=== PATIENT | male | born 1960 | race Caucasian/White ===

== ENCOUNTER 2020-03-12 06:56 | Day surgery (SDC) | payer OTHER ==
[~2020-03-12 06:56] MED LIST: Lactated Ringers 1,000 ML IV SCH
[2020-03-12] MEDS ORDERED: Lidocaine 2% 5 ML SDV ONE (07:05)
[2020-03-12] MEDS ORDERED: Propofol 200 MG/20 ML SDV ONE ×2 (07:06→08:02)
[2020-03-12] MEDS ORDERED: fentaNYL 100 MCG/2 ML SDV ONE (07:06)
--- NOTE | 2020-03-12 07:32 | PCM.PREANE ---
Preanesthetic Assessment - Anesthesia/Transfusion/Family Hx Anesthesia History: Prior Anesthesia Without Reaction Family History of Anesthesia Reaction: No Transfusion History: Prior Transfusion Without Reaction Intubation History: Unknown - Review of Systems General: No Symptoms Pulmonary: No Symptoms Cardiovascular: No Symptoms Gastrointestinal: No Symptoms, Other (screening, first colonoscopy) Neurological: No Symptoms Other: Reports: None - Physical Assessment Height: 5 ft 11 in Weight: 108.862 kg ASA Class: 3 Mental Status: Alert & Oriented x3 Airway Class: Mallampati = 2 Dentition: Reports: Normal Dentition, [place](s) (x1 upper left (back)) Thyro-Mental Finger Breadths: 3 Mouth Opening Finger Breadths: 3 ROM/Head Extension: Full Lungs: Clear to Auscultation, Normal Respiratory Effort Cardiovascular: Regular Rate, Regular Rhythm - Allergies Allergies/Adverse Reactions: Allergies Allergy/AdvReac Type Severity Reaction Status Date / Time No Known Allergies Allergy Verified 03/06/20 10:57 - Blood Blood Available: No - Anesthesia Plan Pre-Op Medication Ordered: None - Acknowledgements Anesthesia Type Planned: MAC Pt an Appropriate Candidate for the Planned Anesthesia: Yes Alternatives and Risks of Anesthesia Discussed w Pt/Guardian: Yes Pt/Guardian Understands and Agrees with Anesthesia Plan: Yes PreAnesthesia Questionnaire HEENT History: Reports: Other (See Below) Other HEENT History: wears glasses Cardiovascular History: Reports: High Cholesterol, Hypertension Respiratory History: Reports: Other (See Below) Other Respiratory History: bronchitis 2 to 3 weeks ago- was treated with st eroids and antibiotics, enlarged chest lymph nodes, to repeat study in 6 months Gastrointestinal History: Reports: GERD Genitourinary History: Reports: None Musculoskeletal History: Reports: Fracture Other Musculoskeletal History: hx fx ankle Neurological History: Reports: None Psychiatric History: Reports: None Endocrine/Metabolic History: Reports: IDDM (Glucose level 105 this morning, A1c 8.4), Obesity/BMI 30+ (BMI 33.5) Hematologic History: Reports: Anemia Other Hematologic History: iron infusions 03/03 & 03/10/20 Immunologic History: Reports: None Oncologic (Cancer) History: Reports: None Dermatologic History: Reports: None - Past Surgical History Head Surgeries/Procedures: Reports: None HEENT Surgical History: Reports: Cataract Surgery Cardiovascular Surgical History: Reports: None Respiratory Surgical History: Reports: None GI Surgical History: Reports: EGD Male Surgical History: Reports: None Endocrine Surgical History: Reports: None Neurological Surgical History: Reports: None Musculoskeletal Surgical History: Reports: None Oncologic Surgical History: Reports: None Dermatological Surgical History: Reports: Other (See Below) (lumpectomy) - SUBSTANCE USE Tobacco Use Status *Q: Never Tobacco User Days Per Week of Alcohol Use: 7 Number of Drinks Per Day: 2 Total Drinks Per Week: 14 Recreational Drug Use History: No - HOME MEDS Home Medications: Home Meds Albuterol Sulfate [Albuterol Sulfate Hfa] 2 puff INH Q4H PRN 03/06/20 [History] Aspirin [Adult Aspirin Regimen] 81 mg PO DAILY 03/06/20 [History] Cholecalciferol (Vitamin D3) [Vitamin D3] 1,000 units PO DAILY 03/06/20 [History] Cinnamon Bark [Cinnamon] 2 tab PO BID 03/06/20 [History] Cyanocobalamin (Vitamin B12) [Vitamin B12] 5,000 mcg PO DAILY 03/06/20 [History] Dulaglutide [Trulicity] 1.5 mg SUBCUT WEEKLY 03/06/20 [History] Empagliflozin/Linagliptin [Glyxambi 25 mg-5 mg Tablet] 1 tab PO DAILY 03/06/20 [History] Fish Oil/[place]-3 Fatty Acids [Fish Oil 1,000 MG] 1,000 mg PO BID 03/06/20 [History] Fluticasone/Salmeterol [Advair HFA 115-21 MCG] 1 inh INH BID PRN 03/06/20 [History] Insulin Detemir [Levemir Flextouch] 48 units SUBCUT BID 03/06/20 [History] Lispro 40 units SUBCUT TIDMEALS 03/06/20 [History] Losartan Potassium 100 mg PO DAILY 03/06/20 [History] Pantoprazole Sodium [Protonix] 40 mg PO DAILY 03/06/20 [History] Triamterene/Hydrochlorothiazid [Triamterene-HCTZ 37.5-25 MG] 1 tab PO DAILY 03/06/20 [History] Vardenafil HCl 20 mg PO DAILY 03/06/20 [History] atorvaSTATin Calcium [Atorvastatin Calcium] 20 mg PO DAILY 03/06/20 [History] metFORMIN HCl [Metformin ER Osmotic] 1,000 mg PO BID 03/06/20 [History] - CURRENT (IN HOUSE) MEDS Current Meds: Current Medications Lactated Ringer's (Ringers, Lactated) 1,000 mls @ 125 mls/hr IV ASDIRECTED SHAWN Discontinued Medications Fentanyl (Sublimaze) Confirm Administered Dose 100 mcg .ROUTE .STK-MED ONE Stop: 03/12/20 07:07 Lidocaine (Xylocaine-Mpf 2%) Confirm Administered Dose 5 ml .ROUTE .STK-MED ONE Stop: 03/12/20 07:06 Propofol (Diprivan 20 Ml) Confirm Administered Dose 400 mg .ROUTE .STK-MED ONE Stop: 03/12/20 07:07
--- NOTE | 2020-03-12 08:21 | PCM.OPNOTE ---
- General Post-Op/Procedure Note Date of Surgery/Procedure: 03/12/20 Operative Procedure(s): colonoscopy w bx and tattoo Findings: see [id number] Pre Op Diagnosis: weight loss Post-Op Diagnosis: Same Anesthesia Technique: Moderate Sedation Primary Surgeon: Parish Ghosh Pathology: 2mm sessile polyp in cecum at 110cm when scope went out, and 10mm ridge like polyp at 110 when scope went in, and bx of hyperemic inside ceum, about 10mm patch like red color Complications: None Condition: Good
--- NOTE | 2020-03-12 08:36 | PCM.POSTAN ---
POST ANESTHESIA ASSESSMENT - MENTAL STATUS Mental Status: Alert, Oriented - VITAL SIGNS Vital Signs: Last Vital Signs Temp 36.7 C 03/12/20 07:20 Pulse 93 03/12/20 08:29 Resp 20 03/12/20 08:29 BP 106/78 03/12/20 08:29 Pulse Ox 92 L 03/12/20 08:29 - RESPIRATORY Respiratory Status: Respiratory Rate WNL, Airway Patent, O2 Saturation Stable - CARDIOVASCULAR CV Status: Pulse Rate WNL, Blood Pressure Stable - GASTROINTESTINAL GI Status: No Symptoms - PAIN Pain Score: 0 - POST OP HYDRATION Hydration Status: Adequate & Stable - OBSERVATIONS Free Text/Narrative:: No anesthesia problems
--- NOTE | 2020-03-12 09:06 | PCM48HPAN ---
Post Anesthesia Note - EVALUATION WITHIN 48HRS OF ANESTHETIC Vital Signs in Normal Range: Yes Patient Participated in Evaluation: Yes Respiratory Function Stable: Yes Airway Patent: Yes Cardiovascular Function Stable: Yes Hydration Status Stable: Yes Pain Control Satisfactory: Yes Nausea and Vomiting Control Satisfactory: Yes Mental Status Recovered: Yes Vital Signs: Last Vital Signs Temp 36.7 C 03/12/20 07:20 Pulse 93 03/12/20 08:29 Resp 20 03/12/20 08:29 BP 106/78 03/12/20 08:29 Pulse Ox 92 L 03/12/20 08:29 - COMMENTS/OBSERVATIONS Free Text/Narrative:: No anesthesia problems
--- NOTE | 2020-03-12 11:30 | OR ---
SURGEON: Parish Ghosh MD DATE OF PROCEDURE: 03/12/2020 PREOPERATIVE DIAGNOSIS: Weight loss. PROCEDURE PERFORMED: Colonoscopy with biopsy and tattoo DESCRIPTION OF PROCEDURE: The patient was taken to the endoscopy room. A time out was called, patient identified, and procedure identified. Diprivan was then administrated. Patient went from awake to sleep, hearing doctor talking or door closing is normal. Perineum inspection and digital examination were then performed. A well- lubricated colonoscope was gently inserted through the rectum, advanced past the rectosigmoid junction, the descending colon, splenic flexure, transverse colon, hepatic flexure, ascending colon, arrived to the cecum. Cecum was identified as dictated in the finding. Then the scope was carefully withdrawn while attention was paid to the mucosal surface for any abnormality. Air will be sucked out during the scope withdrawal. At the rectum, retroflexed to examine any rectal diseases, fistula or hemorrhoids. During mucosal examination, abnormality or polyp was noted; picture taken and biopsy performed. Patient tolerated procedure well. There were no intraoperative complications, and Dr. Ghosh was present throughout the whole procedure. FINDINGS: 1. The patient is easily sedated with DE ICER and Diprivan, the patient is soundly snoring. 2. Bowel prep is average to above average, very little liquid stool, no semi- formed stool, no stool ball. 3. Colon is rather straightforward. Cecum indicated by ileocecal fold, one-to- one indentation, appendiceal orifice. ScopeGuide is pointing south. Mucosa examined upon scope pulling out. The patient does not have diverticulosis. The patient has two small polyp, one inside the cecum, which is 2 mm, at distance 110 cm. Another one is when the scope come out, and another one is also at 110 cm when the scope go in and that one is like a ridge or rectangular block, about 10 X 2 mm. It is not quite sure if it is a fold or polyp. I biopsied, removed already, and then tattooed the area. If it comes back as a polyp, the patient will need to have a repeat colonoscopy about 12 to 18 months to examine that area. There is a ridge, about the size of 10 mm x 2 mm, rectangular block. Again used biopsy forceps removed several times. Other than that, no other mass, growth, inflammation, stricture, AV malformation, bleeding, none of those. The patient does not have external hemorrhoids. The patient has some mild internal hemorrhoids. The patient would benefit from repeat colonoscopy, depends on the pathology of the polyp. ROBBI / ROHAN /[id number]
== END 2020-03-12 09:00 | disposition home or self-care (01) ==
LOC: MW.SDS 06:56
PROVIDERS: ATTEND Surgery
DX: K63.5 Polyp of colon (principal); D64.9 Anemia, unspecified; E11.9 Type 2 diabetes mellitus without complications; K21.9 Gastro-esophageal reflux disease without esophagitis; I10 Essential (primary) hypertension; E66.9 Obesity, unspecified; E78.00 Pure hypercholesterolemia, unspecified; Z79.899 Other long term (current) drug therapy; Z79.82 Long term (current) use of aspirin; Z79.4 Long term (current) use of insulin; Z98.890 Other specified postprocedural states; Z68.33 Body mass index [BMI] 33.0-33.9, adult
CPT/HCPCS: 45380; 45381; 88305; J2001; J2704; J3010; J7120; 00811

== ENCOUNTER 2022-10-29 09:04 | Day surgery (SDC) | payer BC ==
[2022-10-29] MEDS ORDERED: Lidocaine 2% 5 ML SDV ONE (09:39)
[2022-10-29] MEDS ORDERED: propofoL 50 ML ONE (09:39)
[2022-10-29] MEDS ORDERED: fentaNYL 100 MCG/2 ML SDV ONE (09:40)
[2022-10-29] MEDS ORDERED: Propofol 200 MG/20 ML SDV ONE (10:54)
== END 2022-10-29 12:09 | disposition home or self-care (01) ==
LOC: MW.SDS 09:04
PROVIDERS: ATTEND Surgery
DX: D50.9 Iron deficiency anemia, unspecified (principal); K21.9 Gastro-esophageal reflux disease without esophagitis; K31.7 Polyp of stomach and duodenum; K29.70 Gastritis, unspecified, without bleeding; I85.00 Esophageal varices without bleeding; K64.8 Other hemorrhoids; F51.04 Psychophysiologic insomnia; E78.00 Pure hypercholesterolemia, unspecified; F32.A Depression, unspecified; E11.69 Type 2 diabetes mellitus with other specified complication; I10 Essential (primary) hypertension; E66.9 Obesity, unspecified; F17.290 Nicotine dependence, other tobacco product, uncomplicated; Z79.4 Long term (current) use of insulin; Z86.010 Personal history of colon polyps; Z79.84 Long term (current) use of oral hypoglycemic drugs; Z79.899 Other long term (current) drug therapy; Z79.85 Long-term (current) use of injectable non-insulin antidiabetic drugs; Z79.82 Long term (current) use of aspirin; Z68.35 Body mass index [BMI] 35.0-35.9, adult
CPT/HCPCS: 43239; 45380; 82947; J2704; J3010; J7120; J3490

== ENCOUNTER 2023-05-26 19:32 | Observation (INO) | payer BC ==
[2023-05-26 21:28] LABS: BASOPHILS ABSOLUTE AUTO 0.05 K/uL (0.00-0.20); BASOPHILS PERCENT AUTO 0.7 % (0.0-1.0); EOSINOPHILS ABSOLUTE AUTO 0.04 K/uL (0.00-0.45); EOSINOPHILS PERCENT AUTO 0.5 % (0.0-6.0); HEMATOCRIT 38.5 % (42.0-52.0); IMMATURE GRAN ABSOLUTE AUTO 0.01 K/uL (0.00-0.05); IMMATURE GRAN PERCENT AUTO 0.1 % (0.0-0.4); LYMPHOCYTES ABSOLUTE AUTO 1.31 K/uL (1.00-4.80); LYMPHOCYTES PERCENT AUTO 17.8 % (24.0-44.0); MEAN CORPUSCULAR HEMOGLOBIN 22.9 pg (28.0-32.0); MEAN CORPUSCULAR HGB CONC 31.2 g/dL (32.0-36.0); MEAN CORPUSCULAR VOLUME 73.6 fL (83.0-99.0); MEAN PLATELET VOLUME 9.2 fL (9.4-12.4); MONOCYTES ABSOLUTE AUTO 0.76 K/uL (0.00-0.80); MONOCYTES PERCENT AUTO 10.3 % (0.0-8.0); NEUTROPHILS ABSOLUTE AUTO 5.19 K/uL (1.80-7.70); NEUTROPHILS PERCENT AUTO 70.6 % (41.0-71.0); PLATELET COUNT,PLT 219 K/uL (150-400); RED BLOOD CELL COUNT 5.23 M/uL (4.52-5.90); WHITE BLOOD CELL COUNT,WBC 7.36 K/uL (3.9-11.3)
[2023-05-26 21:50] LABS: CALCIUM 9.1 mg/dL (8.5-10.1); CARBON DIOXIDE,CO2 27.3 mmol/L (21.0-32.0); EST CRCL DRUG DOSING (CG) 79.48 mL/min; POTASSIUM,K 3.5 mmol/L (3.5-5.1)
[2023-05-26] MEDS ORDERED: Ondansetron 4 MG/2 ML SDV IVPUSH PRN (21:55)
[2023-05-26] MEDS ORDERED: Albuterol/Ipratropium 3.0-0.5 MG/3 ML Neb Soln NEB PRN (21:55)
[2023-05-26] MEDS ORDERED: Polyethylene Glycol 3350 Powder 17 GM Packet PO PRN (21:55)
[2023-05-26] MEDS ORDERED: 50% Dextrose in Water 50 ML Syringe IVPUSH PRN (21:57)
[2023-05-26] MEDS ORDERED: Glucagon,Human Recombinant 1 MG Vial IM PRN (21:57)
[2023-05-27] MEDS: Insulin Aspart 100 Units/ML 3 ML Pen SUBCUT SCH ×4 (00:14→19:18)
[2023-05-27] MEDS: Acetaminophen 325 MG Tab PO PRN ×2 (00:17→11:53)
== END 2023-05-27 17:30 ==
LOC: MW.ED 19:32 → MW.MS 21:11
PROVIDERS: ADMIT Family Medicine; ATTEND Family Medicine
DX: S32.012A Unstable burst fracture of first lumbar vertebra, initial encounter for closed fracture (principal); I10 Essential (primary) hypertension; E11.9 Type 2 diabetes mellitus without complications; F32.A Depression, unspecified; E78.00 Pure hypercholesterolemia, unspecified; K21.9 Gastro-esophageal reflux disease without esophagitis; E66.9 Obesity, unspecified; Z79.4 Long term (current) use of insulin; Z79.82 Long term (current) use of aspirin; Z79.899 Other long term (current) drug therapy; W11.XXXA Fall on and from ladder, initial encounter
CPT/HCPCS: 36415; 72146; 72148; 80048; 82947; 85025; 99285; A9270; J1815; 99284; G0378

== ENCOUNTER 2024-07-28 20:55 | Emergency (ER) | payer MEDICARE ==
[2024-07-28] MEDS ORDERED: Sodium Chloride 0.9% 10 ML Syringe FLUSH PRN (21:17)
[2024-07-28] MEDS ORDERED: Sodium Chloride 0.9% 2.5 ML Syringe FLUSH PRN (21:17)
[2024-07-28] MEDS ORDERED: Sodium Chloride 0.9% 20 ML SDV IV PRN (21:17)
[2024-07-28] MEDS: Sodium Chloride 0.9% 1,000 ML IV STA (21:27)
[2024-07-28] MEDS: Pantoprazole 80 MG in Sodium Chloride 0.9% 10 ML IVPUSH STA (21:27)
[2024-07-28 21:36] LABS: BASOPHILS ABSOLUTE AUTO 0.15 K/uL (0.00-0.20); BASOPHILS PERCENT AUTO 1.7 % (0.0-1.0); EOSINOPHILS ABSOLUTE AUTO 0.46 K/uL (0.00-0.45); EOSINOPHILS PERCENT AUTO 5.3 % (0.0-6.0); HEMATOCRIT 40.3 % (42.0-52.0); HEMOGLOBIN 13.2 g/dL (14.0-18.0); IMMATURE GRAN ABSOLUTE AUTO 0.03 K/uL (0.00-0.05); IMMATURE GRAN PERCENT AUTO 0.3 % (0.0-0.4); LYMPHOCYTES ABSOLUTE AUTO 1.88 K/uL (1.00-4.80); LYMPHOCYTES PERCENT AUTO 21.6 % (24.0-44.0); MEAN CORPUSCULAR HEMOGLOBIN 27.8 pg (28.0-32.0); MEAN CORPUSCULAR HGB CONC 32.8 g/dL (32.0-36.0); MEAN PLATELET VOLUME 9.7 fL (9.4-12.4); MONOCYTES ABSOLUTE AUTO 0.75 K/uL (0.00-0.80); MONOCYTES PERCENT AUTO 8.6 % (0.0-8.0); NEUTROPHILS ABSOLUTE AUTO 5.42 K/uL (1.80-7.70); NEUTROPHILS PERCENT AUTO 62.5 % (41.0-71.0); PLATELET COUNT,PLT 234 K/uL (150-400); RED BLOOD CELL COUNT 4.74 M/uL (4.52-5.90); WHITE BLOOD CELL COUNT,WBC 8.69 K/uL (3.9-11.3)
[2024-07-28 21:48] LABS: INR 1.16 (0.86-1.11); PTT,PARTIAL THROMBOPLSTIN TIME 23.8 SEC (23.9-30.7)
[2024-07-28] MEDS: Octreotide 500 MCG in Sodium Chloride 0.9% 250 ML IV SCH (21:59)
[2024-07-28 22:04] LABS: A/G RATIO 0.9 (0.9-1.6); ALBUMIN 3.4 g/dL (3.4-5.0); CALCIUM 9.6 mg/dL (8.5-10.1); CARBON DIOXIDE,CO2 25.4 mmol/L (21.0-32.0); CREATININE 1.1 mg/dL (0.8-1.3); EST CRCL DRUG DOSING (CG) 71.31 mL/min; POTASSIUM,K 4.1 mmol/L (3.5-5.1); PROTEIN TOTAL,TP 7.1 g/dL (6.4-8.2)
[2024-07-28 22:10] LABS: ETHANOL BLOOD MEDICAL <3 mg/dL; MAGNESIUM 1.7 mg/dL (1.8-2.4); PRO B-TYPE NATRIUR PEPT,BNPPRO 13 pg/mL (0-125)
== END 2024-07-29 01:20 ==
LOC: MW.ED 20:55
DX: K92.0 Hematemesis (principal); K92.2 Gastrointestinal hemorrhage, unspecified; E11.65 Type 2 diabetes mellitus with hyperglycemia; I10 Essential (primary) hypertension; Z79.82 Long term (current) use of aspirin; Z79.899 Other long term (current) drug therapy; Z79.84 Long term (current) use of oral hypoglycemic drugs; Z79.4 Long term (current) use of insulin
CPT/HCPCS: 36415; 36430; 80053; 80307; 83690; 83735; 83880; 84484; 85025; 85610; 85730; 93005; 96361; 96365; 96366; 96375; 99285; J2470; J7030; P9016; 93010